=== PATIENT | female | born 1945 | race Caucasian/White ===

== ENCOUNTER 2016-10-11 16:19 | Emergency (ER) | payer MEDICARE ==
[~2016-10-11] VITALS: Ht 167.6 cm; Wt 77.0 kg
[2016-10-11 17:17] LABS: BILIRUBIN,URINE Negative (Negative); CLARITY,URINE Turbid; COLOR,URINE Red; GLUCOSE, URINE (UA) Negative (Negative); LEUKOCYTE ESTERASE ,URINE 1+ (Negative); UROBILINOGEN,URINE 0.2 mg/dL (0.2-1.0)
[2016-10-11 17:33] LABS: URINE CENTRIFUGED VOLUME 12 mL
[2016-10-11 17:34] LABS: RBC,URINE >100 /HPF
[2016-10-11] MEDS ORDERED: ED- SULFAMETHOXAZOLE/TRIMETHOPRIM 800-160 MG (SEPTRA DS) 6 TABLETS/BTL PO ONE (18:00)
[2016-10-11 19:01] VITALS: BP 146/58
== END 2016-10-11 18:15 | disposition home or self-care (01) ==
LOC: ED 16:20
DX: N39.0 Urinary tract infection, site not specified (principal)
CPT/HCPCS: 81003; 81015; 87088; 99282; A9270; 87077; 87186; 99283

== ENCOUNTER 2016-10-13 09:20 | Emergency (ER) | payer MEDICARE ==
[~2016-10-13] VITALS: Ht 167.6 cm; Wt 77.0 kg
[2016-10-13] MEDS ORDERED: ONDANSETRON 2 MG/ML (Z0FRAN) 2 ML VIAL IV ONE ×2 (09:35→13:15)
[2016-10-13] MEDS ORDERED: SODIUM CHLORIDE FLUSH 3 ML SYR IV PRN (09:35)
[2016-10-13 09:47] LABS: BASOPHILS % (AUTO) 0 % (0-2); EOSINOPHILS # (AUTO) 0.1 10^3uL; EOSINOPHILS % (AUTO) 1 % (0-4); LYMPHOCYTES # (AUTO) 2.1 X10^3; MEAN CORPUSCULAR HEMOGLOBIN 29.9 PG (26.0-34.0); MEAN CORPUSCULAR HGB CONC 33.1 g/dL (31.0-37.0); MEAN CORPUSCULAR VOLUME 91 FL (80-100); MEAN PLATELET VOLUME 10.2 FL (6.0-9.5); MONOCYTES # (AUTO) 0.9 X10^3; MONOCYTES % (AUTO) 10 % (3-11); NEUTROPHILS # (AUTO) 6.4 X10^3; NEUTROPHILS % (AUTO) 67 % (51-67); PLATELET COUNT 336 10^3uL (150-450)
[2016-10-13] MEDS: SODIUM CHLORIDE FLUSH 10 ML SYR IV PRN ×2 (09:47→13:16)
[2016-10-13 09:58] LABS: ALBUMIN 3.9 g/dL (3.4-5.0); CALCULATED IONIZED CALCIUM 3.8 mg/dL (3.8-4.6); TOTAL PROTEIN 7.4 g/dL (6.4-8.5)
[2016-10-13] MEDS ORDERED: ACETAMINOPHEN 500 MG TAB (TYLENOL) PO ONE (10:55)
[2016-10-13 10:57] LABS: BILIRUBIN,URINE Negative (Negative); CLARITY,URINE Clear; COLOR,URINE Yellow; GLUCOSE, URINE (UA) Negative (Negative); LEUKOCYTE ESTERASE, URINE 2+ (Negative); UROBILINOGEN,URINE 0.2 mg/dL (0.2-1.0)
[2016-10-13 11:04] LABS: URINE CENTRIFUGED VOLUME 12 mL
[2016-10-13] MEDS ORDERED: cefTRIAXone SODIUM 1,000 MG in SODIUM CHLORIDE 50 ML IV ONE (11:15)
--- NOTE | 2016-10-13 13:06 | NUR ---
PT AMBULATES IN BARROW WITH OUT ASSIST AND DENIES DIZZINESS OR NAUSEA
[2016-10-13 13:32] VITALS: BP 128/63
== END 2016-10-13 13:30 | disposition home or self-care (01) ==
LOC: EDUNIT# 09:20 → ED 09:21
DX: R11.2 Nausea with vomiting, unspecified (principal); N39.0 Urinary tract infection, site not specified; E86.0 Dehydration
CPT/HCPCS: 36415; 80053; 81003; 81015; 85025; 96361; 96365; 96375; 96376; 99283; A9270; J0696; J2405; J7030

== ENCOUNTER → 2016-10-26 | Outpatient (CLI) | payer MEDICARE | LOC: LAB 14:50 | PROVIDERS: ATTEND Family Medicine | DX: K52.9 Noninfective gastroenteritis and colitis, unspecified (principal) | CPT/HCPCS: 87507 ==